=== PATIENT | male | born 1990 | race Caucasian/White ===

== ENCOUNTER 2018-07-10 13:08 | Emergency (ER) | payer OTHER ==
[~2018-07-10] VITALS: Ht 182.9 cm; Wt 118.2 kg
[2018-07-10 13:10] VITALS: Ht 182.9 cm; Wt 118.2 kg
[2018-07-10] MEDS ORDERED: ZOLOFT25 MG PO (13:13)
[2018-07-10] MEDS ORDERED: VIBRAMYCIN 100100 MG PO (14:33)
[2018-07-10 14:38] VITALS: BP 136/77
== END 2018-07-10 14:41 | disposition home or self-care (01) ==
LOC: D.ER 13:08
DX: S51.811A Laceration without foreign body of right forearm, initial encounter (principal); W25.XXXA Contact with sharp glass, initial encounter; Y93.89 Activity, other specified; Y92.89 Other specified places as the place of occurrence of the external cause

== ENCOUNTER 2018-07-23 12:57 | Emergency (ER) | payer OTHER ==
[~2018-07-23] VITALS: Ht 182.9 cm; Wt 106.8 kg
[~2018-07-23 12:57] MED LIST: VIBRAMYCIN 100100 MG PO; ZOLOFT25 MG PO
[2018-07-23 13:04] VITALS: Ht 182.9 cm; Wt 106.8 kg
[2018-07-23] MEDS ORDERED: CYMBALTA60 MG PO (13:07)
[2018-07-23 16:20] VITALS: BP 139/73
== END 2018-07-23 16:00 | disposition home or self-care (01) ==
LOC: D.ER 12:57
DX: S41.111D Laceration without foreign body of right upper arm, subsequent encounter (principal); X58.XXXD Exposure to other specified factors, subsequent encounter; Z48.02 Encounter for removal of sutures

== ENCOUNTER 2018-08-12 08:49 | Emergency (ER) | payer OTHER ==
[~2018-08-12] VITALS: Ht 182.9 cm; Wt 104.5 kg
[~2018-08-12 08:49] MED LIST changes: +CYMBALTA60 MG PO
[2018-08-12 09:03] VITALS: Ht 182.9 cm; Wt 104.5 kg
[2018-08-12] MEDS ORDERED: STERAPRED DS 1010 MG PO (10:23)
[2018-08-12 10:45] VITALS: BP 110/75
== END 2018-08-12 10:46 | disposition home or self-care (01) ==
LOC: D.ER 08:49
DX: L24.7 Irritant contact dermatitis due to plants, except food (principal)

== ENCOUNTER 2018-11-05 11:44 | Emergency (ER) | payer OTHER ==
[~2018-11-05] VITALS: Ht 182.9 cm; Wt 104.5 kg
[~2018-11-05 11:44] MED LIST changes: +STERAPRED DS 1010 MG PO
[2018-11-05 11:48] VITALS: Ht 182.9 cm; Wt 104.5 kg
[2018-11-05 14:18] VITALS: BP 124/62
== END 2018-11-05 14:18 | disposition home or self-care (01) ==
LOC: D.ER 11:44
DX: T78.40XA Allergy, unspecified, initial encounter (principal); X58.XXXA Exposure to other specified factors, initial encounter